=== PATIENT | male | born 1960 | race Two or more races ===

== ENCOUNTER 2019-01-29 07:52 | Outpatient (CLI) | payer OTHER ==
[2019-01-30] MEDS ORDERED: PERCOCET 5-3251 EACH (10:22)
[2019-01-30] MEDS ORDERED: BUPROPION HCL75 MG (10:59)
== END 2019-01-29 14:58 | disposition home or self-care (01) ==
LOC: LAB 07:52
DX: C34.90 Malignant neoplasm of unspecified part of unspecified bronchus or lung (principal); C34.11 Malignant neoplasm of upper lobe, right bronchus or lung; I10 Essential (primary) hypertension

== ENCOUNTER 2019-02-01 05:30 | Day surgery (SDC) | payer OTHER ==
[~2019-02-01 05:30] MED LIST: BUPROPION HCL75 MG; PERCOCET 5-3251 EACH
[2019-02-01] MEDS ORDERED: PERCOCET 5-3251 EACH PO (08:33)
== END 2019-02-01 10:05 | disposition home or self-care (01) ==
LOC: CIR.AMB 05:30
DX: C34.11 Malignant neoplasm of upper lobe, right bronchus or lung (principal)
CPT/HCPCS: 36561; C1751